=== PATIENT | female | born 1990 | race African-American/Black ===

== ENCOUNTER 2017-06-27 16:29 | Emergency (ER) | payer OTHER ==
[~2017-06-27] VITALS: Ht 149.9 cm; Wt 54.4 kg
--- NOTE | 2017-06-27 16:50 | Emergency Room Report ---
History of Present Illness General Chief Complaint: Lower Extremity Injury Source: Patient Present Illness HPI 27-year-old female patient presents to the ER complaining of left ankle pain for the past 3 weeks. Patient reports that she twisted her ankle while at school. Patient reports pain with ambulation. Patient being seen in ER with her aunts. Denies hitting her head or loss of consciousness. reports she's been wrapping her foot and ankle, denies use of medication for pain relief. Allergies: Coded Allergies: No Known Allergies (Unverified , 06/27/17) Patient History Past Medical History: see triage record Reviewed Nursing Documentation: PMH: Agreed; PSxH: Agreed Nursing Documentation-PMH Past Medical History: No Stated History Review of Systems All Other Systems: negative except mentioned in HPI Physical Exam Vital Signs Date Time Temp Pulse Resp B/P (MAP) Pulse Ox O2 Delivery O2 Flow Rate FiO2 06/27/17 16:34 98.3 82 18 115/73 97 Room Air 98.2 Sp02 EP Interpretation: reviewed, normal General Appearance: well appearing, no apparent distress, alert, GCS 15, non- toxic Head: normocephalic, atraumatic Eyes: bilateral eye normal inspection, bilateral eye PERRL Respiratory: lungs clear, normal breath sounds, no rhonchi, no respiratory distress, no accessory muscle use, no wheezing, speaking full sentences Cardiovascular #1: regular rate, rhythm, no edema Cardiovascular #2: 2+ dorsalis pedis (R), 2+ dorsalis pedis (L) Musculoskeletal: back normal, digits/nails normal, gait/station normal, normal range of motion, non-tender, other - NVI; negative syndesmotic squeeze test, no TTP over fifth metatarsal, no TTP over malleoli, no TTP over talus Psychiatric: mood/affect normal Skin: no rash Medical Decision Making PA Attestation Dr. Casillas is my supervising Physician whom patient management has been discussed with. Diagnostic Impression: Primary Impression: Injury of lower extremity ER Course Pt. presents to the ED c/o left ankle pain. Ddx considered but are not limited to fracture, sprain, strain, contusion. Vital signs: are WNL, pt. is afebrile Ordered X-ray and pain medication. ER COURSE PE benign, patient ambulating without limp, no TTP, full passive ROM. Provided with pain medication. An X-ray of the let ankle was ordered, results show no acute fracture, per the preliminary reading. Discussed results with patient, likely sprain. Reports pain symptoms improved. JOSH wrap and post-op shoe was applied to the ankle and foot and was checked afterwards by me showing good alignment and support with distal neurovascular functioning intact. Crutches declined, reports has crutches at home. Patient instructed on RICE method: rest, ice, compression, elevation. Patient instructed to WBAT. School note provided. No PE until medical clearance from PCP. Followup with primary care provider for medical clearance to return to activities. Discuss referral to ortho/pain management/PT as needed. DISCHARGE: -Rx provided for Tylenol for pain symptoms. At this time pt. is stable for d/c to home. Patient is resting comfortably, in no acute distress, nontoxic appearing, talking without difficulty. Will provide printed patient care instructions, and any necessary prescriptions. Patient instructed to follow with primary care provider in 3 - 5 days and to request further orthopedic follow-up. Care plan and follow up instructions have been discussed with the patient prior to discharge. Take medications as directed. Patient questions asked and answered. Patient reports understanding and agreement to treatment plan. ER precautions given, patient instructed to return to ER immediately for any new or worsening of symptoms. - Please note that this Emergency Department Report was dictated using [employer] project manager technology software, occasionally this can lead to erroneous entry secondary to interpretation by the dictation equipment. Other X-Ray Diagnostic Results Other X-Ray Diagnostic Results : X-Ray ordered: left ankle # of Views/Limited Vs Complete: 3 View Indication: Pain EP Interpretation: Yes PA Xray: Interpretation reviewed, by supervising MD, and agrees with findings. Interpretation: no dislocation, no soft tissue swelling, no fractures Impression: No acute disease PA Scribe Text Charbel Le PA-C Last Vital Signs Date Time Temp Pulse Resp B/P (MAP) Pulse Ox O2 Delivery O2 Flow Rate FiO2 06/27/17 16:34 98.3 82 18 115/73 97 Room Air 98.2 Disposition: HOME, SELF-CARE Condition: Stable Scripts Acetaminophen* (TYLENOL EXTRA STRENGTH*) 500 Mg Tablet 500 MG ORAL Q8H PRN for Prn Headache/Temp > 101, #30 TAB 0 Refills Prov: Brown Le 06/27/17 Patient Instructions: Ankle Sprain Additional Instructions: Patient instructed to follow up with primary care provider and discuss further referral to orthopedics. Patient instructed on RICE method: rest, ice, compression, elevation. Patient instructed to WBAT. Take medications as directed. Patient questions asked and answered. ER precautions given, patient instructed to return to ER immediately for any new or worsening of symptoms. Brown Le June 27, 2017 16:50
[2017-06-27] MEDS ORDERED: Acetaminophen 500mg (ES) tab ORAL ONE (17:00)
[2017-06-27] MEDS ORDERED: TYLENOL EXTRA500 MG ORAL (17:31)
[2017-06-27 17:52] VITALS: BP 115/73
--- NOTE | 2017-06-28 08:55 | Diagnostic Imaging Report ---
Indication: Ankle pain Technique: 3 views of the left ankle Comparison: none Findings: No acute fractures. No dislocations. Joint spaces are preserved. Normal mineralization. No radiopaque foreign body. Impression: Negative
== END 2017-06-27 18:00 | disposition home or self-care (01) ==
LOC: EMR 17:12
DX: S93.402A Sprain of unspecified ligament of left ankle, initial encounter (principal); X50.1XXA Overexertion from prolonged static or awkward postures, initial encounter; Y92.219 Unspecified school as the place of occurrence of the external cause
CPT/HCPCS: 99283